=== PATIENT | female | born 1980 | race African-American/Black ===

== ENCOUNTER 2019-03-06 00:10 | Emergency (ER) | payer SELFPAY ==
[~2019-03-06] VITALS: Ht 160 cm; Wt 71.0 kg
[2019-03-06 00:21] VITALS: BP 107/66
== END 2019-03-06 05:34 | disposition left against medical advice (07) ==
LOC: ER 00:10
DX: N64.4 Mastodynia (principal); Z53.21 Procedure and treatment not carried out due to patient leaving prior to being seen by health care provider